=== PATIENT | female | born 1990 | race Hispanic/Latino ===

== ENCOUNTER → 2024-12-26 | Outpatient (CLI) | payer MEDICAID ==
--- NOTE | 2025-01-01 10:37 | HMCSR ---
APPROVED REPORT EXAM: Two-dimensional and M-mode echocardiogram with Doppler and color Doppler. INDICATION ICD: I42.0 Dilated cardiomyopathy 2D Dimensions RVDd4.5 cmLVEF(%)54.0 (>50%)LVED Vol(simp.)154.0 mL IVSd0.8 (0.7-1.1cm)FS(%)28 %LVES Vol(simp.)60.0 mL LVDd5.1 (3.8-5.6cm)Ao Root(2D)2.8 (2.0-3.7cm)LVEF(%, simp.)61 % PWd0.9 (0.7-1.1cm)LVOT diam2.1 (1.8-2.4cm)LA ESV INDEX (BP)26.95 mL/m2 LVDs3.6 (2.5-4.0cm)IVC diam1.6 cm Aortic Valve AoV Vmax1.7 m/Michaela Peak GR12.2 mmHgLVOT Vmax1.5 m/s AoV VTI0.4 mAo Mean GR6.9 mmHgLVOT VTI0.33 m CHERELLE (VMAX)2.9 cm2AVA (VTI) 2.9 cm2 Mitral Valve MV E Vmax98.6 cm/sDECEL Qeke170 ms MV A Vmax99.6 cm/sP 1/2 T38 ms E/A ratio1.0MVA (PHT)5.8 cm2 MR Max PG74 mmHg TDI E/E' Vmteaw80.8E/E' Lateral6.9 Pulmonary Valve PV Vmax1.1 m/sPV VTI0.24 mPV Mean GR2 mmHg PV Peak GR4.6 mmHgPI End Linh. Benja 0.8 cm/s Tricuspid Valve TR Vmax2.3 m/sRAP (EST) 3 hiAaCLJR09.0 mmHg TR Peak GR22.0 mmHg Left Ventricle The left ventricle structure and function is normal. There is normal left ventricular wall thickness. Left ventricle systolic function is normal. The Ejection Fraction is 55-60%. Indeterminate diastolic dysfunction. Right Ventricle The right ventricle is moderately dilated. The right ventricular systolic function is normal. Atria The left atrium size is normal. The right atrium is mildly dilated. Aortic Valve Aortic valve is trileaflet. Aortic valve leaflets are sclerotic but open well. Trace aortic regurgita tion. There is no aortic valvular stenosis. Mitral Valve The mitral valve is mildly thickened. Mitral regurgitation is trace. There is no mitral valve stenosi s. Tricuspid Valve The tricuspid valve leaflets appear normal. There is trace to mild tricuspid regurgitation. Pulmonic Valve The pulmonic valve leaflets are thin and pliable; valve motion is normal. There is trace to mild valv ular regurgitation. Great Vessels The aortic root is normal in size. The IVC is normal in size and collapses >50% with inspiration. Pericardium No pericardial effusion. Conclusion Left ventricle systolic function is normal. The Ejection Fraction is 55-60%. Indeterminate diastolic dysfunction. The right ventricle is moderately dilated. The right atrium is mildly dilated. Trace aortic regurgitation. Mitral regurgitation is trace. There is trace to mild tricuspid regurgitation.
== END | disposition home or self-care (01) ==
LOC: SHCH 09:48
PROVIDERS: ATTEND Internal Medicine Cardiovascular Disease
DX: I08.8 Other rheumatic multiple valve diseases (principal); I42.0 Dilated cardiomyopathy
CPT/HCPCS: 93306